=== PATIENT | female | born 1995 | race Caucasian/White ===

== ENCOUNTER 2022-07-07 14:54 | Emergency (ER) | payer OTHER, SELFPAY ==
[2022-07-07 14:59] VITALS: BP 114/68; PULSE 82; RESP 16; TEMP 37.1; O2SAT 99
--- NOTE | 2022-07-07 16:28 | ED.GENADULT ---
HPI - General Adult General Chief complaint: Environmental Exposure Stated complaint: blood exposure at work Time Seen by Provider: 07/07/22 15:49 Source: patient Mode of arrival: ambulatory Limitations: no limitations History of Present Illness HPI narrative: This is a 27 year old female that presents to the ER for an injury at work. 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 Reports she was nicked on her finger by a blade by the dentist. Reports she immediately washed the wound with soap and water. The patient is not known to have any blood borne pathogens. Review of Systems Review of Systems: CONSTITUTIONAL: Denies fever SKIN: Reports superficial abrasion All systems reviewed & are unremarkable except as noted in HPI and below PMFSH Past Medical History Medical History (Updated 07/07/22 @ 16:42 by Malina Lin PA-C) No active medical problems Social History Social History (Updated 07/07/22 @ 16:42 by Malina Lin PA-C) Substance use: never Exam Narrative: GENERAL: Well-appearing, well-nourished, and in no acute distress. HEAD: Normocephalic, atraumatic. EYES: EOMI. EXTREMITIES: Normal range of motion. No edema. Superficial break in the skin to the left second finger distal phalanx. No active bleeding SKIN: Warm, dry, no rash. NEURO: No focal deficits. Alert and oriented x3. PSYCH: Normal mood and affect Course Vital Signs Vital signs: Vital Signs Temperature 98.7 F 07/07/22 14:59 Pulse Rate 82 07/07/22 14:59 Respiratory Rate 16 07/07/22 14:59 Blood Pressure 114/68 07/07/22 14:59 Pulse Oximetry 99 07/07/22 14:59 Oxygen Delivery Room Air 07/07/22 14:59 Temperature 98.7 F 07/07/22 14:59 Pulse Rate 82 07/07/22 14:59 Respiratory Rate 16 07/07/22 14:59 Blood Pressure 114/68 07/07/22 14:59 Pulse Oximetry 99 07/07/22 14:59 Oxygen Delivery Room Air 07/07/22 14:59 Medical Decision Making [facility] Narrative Medical decision making narrative: Patient presents emergency department for needlestick injury at work sustained just prior to arrival. She has a very superficial puncture in the skin of the left second finger. She immediately washed with soap and water after. The patient was not known to have any blood-borne illnesses. Needlestick profile was obtained. She was instructed she should have further follow-up with her primary provider. She was given warnings to return to the ER Vital Signs Vital Signs: Vital Signs Temperature 98.7 F 07/07/22 14:59 Pulse Rate 82 07/07/22 14:59 Respiratory Rate 16 07/07/22 14:59 Blood Pressure 114/68 07/07/22 14:59 Pulse Oximetry 99 07/07/22 14:59 Oxygen Delivery Room Air 07/07/22 14:59 Temperature 98.7 F 07/07/22 14:59 Pulse Rate 82 07/07/22 14:59 Respiratory Rate 16 07/07/22 14:59 Blood Pressure 114/68 07/07/22 14:59 Pulse Oximetry 99 07/07/22 14:59 Oxygen Delivery Room Air 07/07/22 14:59 Lab Data Labs: Lab Results 07/07/22 07/07/22 Range/Units 16:17 16:17 Hep Bs Antibody Pending Hepatitis C Ab Screen Pending HIV 1&2 Ab/P24 Ag 4thGn Pending Critical Care Time Critical Care Time Critical Care Time: No Discharge Plan Discharge Clinical Impression: Needlestick injury accident Patient Disposition: Home, Self-Care Condition: Stable Instructions: Needle Stick Injuries (ED) Additional Instructions: Follow up with your primary care doctor. You will need repeat blood work to continue to rule out any transmission of blood borne pathogens Follow-up/Referrals: PHYSICIAN NOT ON STAFF,NONSTAFF [Primary Care Provider] - 3 Days
[2022-07-07 17:14] LABS: HIV 1/2 Ab P24 Ag Result Negative (Negative)
[2022-07-07 17:34] LABS: Hepatitis B Surface Anti Res Positive; Hepatitis C Virus Antibody Negative (Negative)
== END 2022-07-07 17:05 | disposition home or self-care (01) ==
PROVIDERS: Physician Assistant; Emergency Provider Emergency Medicine
DX: S61.231A Puncture wound without foreign body of left index finger without damage to nail, initial encounter (principal); Z77.21 Contact with and (suspected) exposure to potentially hazardous body fluids; W26.8XXA Contact with other sharp object(s), not elsewhere classified, initial encounter; Y93.F9 Activity, other caregiving
CPT/HCPCS: 36415; 86703; 86706; 86803; 99283; G0432